=== PATIENT | female | born 1945 | race Two or more races ===

== ENCOUNTER 2020-03-16 13:48 | Outpatient (CLI) | payer OTHER ==
[~2020-03-16 13:48] MED LIST: FOSAMAX10 MG
[2020-03-17] MEDS ORDERED: SYNTHROID75 MCG PO (15:16)
[2020-03-17] MEDS ORDERED: SINGULAIR10 MG PO (15:17)
[2020-03-17] MEDS ORDERED: SIMVASTAT (15:18)
[2020-03-21] MEDS ORDERED: PROTONIX40 MG PO (10:07)
[2020-03-21] MEDS ORDERED: ULTRACET PO (10:07)
[2020-03-21] MEDS ORDERED: KEFLEX500 MG PO (10:07)
== END 2020-03-16 13:57 | disposition home or self-care (01) ==
LOC: TOM 13:48
PROVIDERS: ATTEND Internal Medicine
DX: R91.1 Solitary pulmonary nodule (principal); C50.111 Malignant neoplasm of central portion of right female breast

== ENCOUNTER → 2020-03-21 | Day surgery (SDC) | payer OTHER ==
[~2020-03-21] MED LIST changes: +GABAPENTIN PO; +KEFLEX500 MG PO; +PROTONIX40 MG PO; +SIMVASTAT; +SINGULAIR10 MG PO; +SYNTHROID75 MCG PO; +ULTRACET PO
== END | disposition home or self-care (01) ==
LOC: CIR.AMB 06:17
PROVIDERS: ATTEND Surgery
DX: C50.111 Malignant neoplasm of central portion of right female breast (principal); Z20.828 Contact with and (suspected) exposure to other viral communicable diseases

== ENCOUNTER 2020-04-29 06:18 | Day surgery (SDC) | payer OTHER | END 2020-04-29 14:20 | disposition home or self-care (01) | LOC: CIR.AMB 06:18 | PROVIDERS: ATTEND Surgery | DX: C50.411 Malignant neoplasm of upper-outer quadrant of right female breast (principal); C77.3 Secondary and unspecified malignant neoplasm of axilla and upper limb lymph nodes; Z20.828 Contact with and (suspected) exposure to other viral communicable diseases ==